=== PATIENT | female | born 1970 | race Caucasian/White ===

== ENCOUNTER → 2022-02-23 13:09 | Outpatient (BNVA) | payer MEDICARE, OTHER, SELFPAY | PROVIDERS: Visit Provider Podiatrist Foot & Ankle Surgery | DX: M72.2 Plantar fascial fibromatosis (principal); M21.611 Bunion of right foot; M21.612 Bunion of left foot; M20.41 Other hammer toe(s) (acquired), right foot; M20.42 Other hammer toe(s) (acquired), left foot; M21.621 Bunionette of right foot; M21.622 Bunionette of left foot | CPT/HCPCS: 73630; 99203; 99204 ==

== ENCOUNTER → 2022-04-06 14:10 | Outpatient (BNVA) | payer MEDICARE, OTHER, SELFPAY | PROVIDERS: Visit Provider Podiatrist Foot & Ankle Surgery | DX: M72.2 Plantar fascial fibromatosis (principal); M21.611 Bunion of right foot; M21.612 Bunion of left foot; M79.671 Pain in right foot; M79.672 Pain in left foot; M20.41 Other hammer toe(s) (acquired), right foot; M20.42 Other hammer toe(s) (acquired), left foot; M21.621 Bunionette of right foot; M21.622 Bunionette of left foot | CPT/HCPCS: 99213; 99214 ==

== ENCOUNTER 2022-04-12 15:35 | Outpatient (CLI) | payer MEDICARE, OTHER, SELFPAY | END 2022-04-12 15:36 | disposition home or self-care (01) | LOC: SPT 15:35 | PROVIDERS: Visit Provider Podiatrist Foot & Ankle Surgery | DX: Z46.89 Encounter for fitting and adjustment of other specified devices (principal); M72.2 Plantar fascial fibromatosis | CPT/HCPCS: 97760; L3030 ==

== ENCOUNTER → 2022-05-25 13:36 | Outpatient (BNVA) | payer MEDICARE, OTHER, SELFPAY | PROVIDERS: Visit Provider Podiatrist Foot & Ankle Surgery | DX: M72.2 Plantar fascial fibromatosis (principal); M21.611 Bunion of right foot; M21.612 Bunion of left foot; M20.41 Other hammer toe(s) (acquired), right foot; M20.42 Other hammer toe(s) (acquired), left foot; M21.621 Bunionette of right foot; M21.622 Bunionette of left foot | CPT/HCPCS: 99213 ==

== ENCOUNTER → 2022-07-06 12:03 | Outpatient (BNVA) | payer MEDICARE, OTHER, SELFPAY | PROVIDERS: PCP Nurse Practitioner Family; Visit Provider Nurse Practitioner Family | DX: N81.10 Cystocele, unspecified (principal); N39.3 Stress incontinence (female) (male); I10 Essential (primary) hypertension; M19.90 Unspecified osteoarthritis, unspecified site; M79.7 Fibromyalgia; N30.20 Other chronic cystitis without hematuria; Z79.1 Long term (current) use of non-steroidal anti-inflammatories (NSAID); E66.9 Obesity, unspecified | CPT/HCPCS: 80053; 80061 ==

== ENCOUNTER 2022-07-07 14:52 | Outpatient (CLI) | payer MEDICARE, OTHER, SELFPAY ==
--- NOTE | 2022-07-07 15:03 | MM_ITS ---
WS: [id number] BILATERAL 3D TOMOSYNTHESIS DIGITAL SCREENING MAMMOGRAPHY WITH CAD CLINICAL INFORMATION: screening HISTORY: Screening mammogram. No current complaints. COMPARISON: October 12, 2021 TECHNIQUE: Bilateral CC and MLO views. FINDINGS: Scattered fibroglandular densities bilaterally. 6 mm ovoid density 12:00 LEFT breast. Recommend furth er evaluation with ultrasound. This appears new or progressed compared to previous. RIGHT breast is unchanged and unremarkable. MM/[place] [id number] IMPRESSION: BI-RADS: 0-Incomplete: Need additional imaging evaluation FOLLOW UP: Need Additional Imaging Recommend LEFT breast ultrasound in further evaluation at the 12:00 position.
== END 2022-07-07 14:53 | disposition home or self-care (01) ==
LOC: RAD 14:55
PROVIDERS: PCP Nurse Practitioner Family; Visit Provider Nurse Practitioner Family
DX: Z12.31 Encounter for screening mammogram for malignant neoplasm of breast (principal)
CPT/HCPCS: 77063; 77067

== ENCOUNTER 2022-08-11 12:48 | Outpatient (CLI) | payer MEDICARE, OTHER, SELFPAY ==
--- NOTE | 2022-08-11 13:00 | US_ITS ---
WS: [id number] ULTRASOUND BREAST LEFT TECHNIQUE: Ultrasound left breast focused area of concern. CLINICAL INFORMATION: abnormal left breast mammo COMPARISON: July 07, 2022 FINDINGS: Ultrasound LEFT breast at the 12 to 1:00 position and LEFT axilla. There is a hypoechoic solid lesion at the 1:00 position taller than wide. This measures approximately 6.3 x 5.0 x 6.2 mm. This is suspi cious and recommend further evaluation with ultrasound-guided biopsy. No abnormal lymph nodes in the LEFT axilla. US/US breast LT limited* [id number] IMPRESSION: BI-RADS 4 Suspicious FOLLOW UP: Ultrasound-guided biopsy recommended RECOMMEND ULTRASOUND GUIDED BIOPSY OF THE SOLID LESION LEFT BREAST AT 1:00 POSI TION.
== END 2022-08-11 12:49 | disposition home or self-care (01) ==
LOC: RAD 12:48
PROVIDERS: PCP Nurse Practitioner Family; Visit Provider Nurse Practitioner Family
DX: R92.8 Other abnormal and inconclusive findings on diagnostic imaging of breast (principal)
CPT/HCPCS: 76642

== ENCOUNTER 2022-08-18 14:57 | Outpatient (CLI) | payer MEDICARE, OTHER, SELFPAY ==
--- NOTE | 2022-08-18 15:32 | XR_ITS ---
WS: [id number] DEXA (DUAL ENERGY X-RAY ABSORPTIOMETRY) Bone mineral density was performed using a [employer] machine. HISTORY: Asymptomatic MENOPAUSAL STATE COMPARISON: None available. Lumbar spine BMD (L1-L4): 1.138 g/cm2 T score: -0.4 Z score: -0.8 Total hip BMD: Left: 0.811 g/cm2. T score: -1.6 Z score: -1.8 Right: 0.845 g/cm2. T score: -1.3 Z score: -1.5 10 year probability of a major osteoporotic fracture is 13.9%. XR/XR DEXA axial skeleton* [id number] IMPRESSION: OSTEOPENIA based upon the WHO classification for females.
== END 2022-08-18 14:58 | disposition home or self-care (01) ==
LOC: RAD 14:58
PROVIDERS: PCP Nurse Practitioner Family; Visit Provider Nurse Practitioner Family
DX: Z78.0 Asymptomatic menopausal state (principal); M85.80 Other specified disorders of bone density and structure, unspecified site
CPT/HCPCS: 77080

== ENCOUNTER 2022-09-14 08:49 | Outpatient (CLI) | payer MEDICARE, OTHER, SELFPAY ==
--- NOTE | 2022-09-14 08:54 | US_ITS ---
WS: [email or web address] ULTRASOUND-GUIDED LEFT BREAST BIOPSY CLINICAL INFORMATION: abnormal us of left breast FINDINGS: The procedure including risks, benefits, and complications were discussed with the patient who agreed to proceed. Using sterile technique patient was prepped and draped in the usual sterile fashion. Aft er 1% lidocaine utilizing real-time ultrasound guidance 5 14-gauge cores were obtained of the LEFT br east lesion at the 1 o'clock position. Subsequently a titanium clip was placed in the biopsy cavity. No immediate complications. Pathology demonstrates Final Diagnosis A. Breast, left, 1 o'clock, 1 cm from nipple , ultrasound-guided biopsy: - Benign breast tissue with stromal sclerosis. - No malignancy identified. US/[place] [id number] IMPRESSION: 1. Uncomplicated ultrasound-guided LEFT breast 1:00 biopsy. 2. The pathology demonstrates benign breast tissue with stromal sclerosis. No malignancy identified. 3. Recommend return to annual screening mammography. BI-RADS: 2-Benign FOLLOW UP: 1 Year Follow-up
== END 2022-09-14 08:50 | disposition home or self-care (01) ==
LOC: RAD 08:50
PROVIDERS: PCP Family Medicine; Visit Provider Nurse Practitioner Family
DX: N63.21 Unspecified lump in the left breast, upper outer quadrant (principal)
CPT/HCPCS: 19083; 88305

== ENCOUNTER → 2023-07-17 13:50 | Outpatient (BNVA) | payer MEDICARE, OTHER, SELFPAY | PROVIDERS: PCP Family Medicine; Visit Provider Otolaryngology | DX: H60.543 Acute eczematoid otitis externa, bilateral (principal) | CPT/HCPCS: 99203 ==

== ENCOUNTER 2023-09-12 12:40 | Outpatient (CLI) | payer MEDICARE, OTHER, SELFPAY ==
--- NOTE | 2023-09-12 13:14 | MM_ITS ---
WS: [email or web address] Bilateral screening 3D tomosynthesis digital mammogram, 09/12/2023 Clinical Data: SCREENING Comparison: 06/06/2022, 10/12/2021, 06/01/2020, 05/03/2018, 03/11/2015, fourth 2011, 08/16/2011. Findings: The breast parenchymal pattern shows fibroglandular tissue. No spiculated masses or clustered calcifi cations are seen. There are no secondary signs of carcinoma. Impression: 1. Negative bilateral mammogram unchanged. 2. Recommend annual screening mammograms. MM/[place] [id number] BIRADS: 1-Negative FOLLOW UP: 1 Year Follow-up The CAD production checker was used.
== END 2023-09-12 12:41 | disposition home or self-care (01) ==
LOC: RAD 12:40
PROVIDERS: PCP Family Medicine; Visit Provider Family Medicine
DX: Z12.31 Encounter for screening mammogram for malignant neoplasm of breast (principal)
CPT/HCPCS: 77063; 77067

== ENCOUNTER 2023-10-16 16:59 | Outpatient (CLI) | payer MEDICARE, OTHER, SELFPAY ==
--- NOTE | 2023-10-16 17:05 | XR_ITS ---
WS: [email or web address] Exam: XR wrist RT min 3V* [id number] Date/Time of Exam: 10/16/2023 5:05 PM Reason For Exam: WRIST PAIN There are no fractures, soft tissue swelling, or unusual calcifications. The wrist shows normal bony alignment. There is no irregularity of the bony architecture. IMPRESSION: Negative RIGHT wrist.
== END 2023-10-16 17:00 | disposition home or self-care (01) ==
LOC: RAD 17:03
PROVIDERS: PCP Family Medicine; Visit Provider Nurse Practitioner Family
DX: M25.531 Pain in right wrist (principal)
CPT/HCPCS: 73110

== ENCOUNTER 2024-09-04 11:22 | Emergency (ER) | payer MEDICARE, OTHER, SELFPAY ==
[2024-09-04 11:44] VITALS: BP 123/75; PULSE 84; RESP 16; TEMP 36.7; O2SAT 95; BMI 25.0
--- NOTE | 2024-09-04 14:23 | W.ED.URI ---
HPI - URI/Sore Throat General: Chief Complaint: Dental/Oral Stated Complaint: swollen uvula Time Seen by Provider: 09/04/24 13:53 History of Present Illness: 54-year-old female comes in today with complaints of swelling of the uvula. Patient had a dental procedure done yesterday and believes her uvula was injured during the procedure. Patient reports last night she started having increased swelling and felt that the will be a lot was being swallowed. Patient also noticed a little white spot at the tip of it. Patient is managing secretions well. Patient appears nontoxic. Patient appears in mild pain. Related Data Previous Rx's Medication Instructions Recorded SOLE SUPPORTS #1 ea 02/23/22 ibuprofen 800 mg tablet 800 mg PO Q8H PRN pain #90 tabs 10/16/23 amlodipine 10 mg tablet 10 mg PO DAILY #90 tabs 04/19/24 estradiol 10 mcg vaginal tablet 10 mcg vaginal .twice weekly #30 04/19/24 (Yuvafem) tabs Allergies Allergy/AdvReac Type Severity Reaction Status Date / Time lisinopril Allergy ALGY-Swell Verified 09/03/24 15:44 Lip/Tongue/Throat morphine Allergy UNKNOWN Verified 04/19/24 11:28 Review of Systems General: Reports: 10 or more systems reviewed and unremarkable except in HPI and below ENMT: Reports: uvular edema PFSH ED PFSH: Medical History Acute respiratory disease due to COVID-19 virus Personal history of COVID-19 (~12/2020) Hx of cervical cancer History of COVID-19 Osteopenia History of pneumonia Arthritis Chronic cystitis Hypertension Surgical History History of ear surgery Hx of neck surgery History of total hysterectomy History of cholecystectomy History of appendectomy Family History Father CAD (coronary artery disease) Hypertension Family/Other CAD (coronary artery disease) Runs in paternal side Sister Cancer ovarian Hypertension Grandmother Cancer Maternal--x2 breast Diabetes Brother Hypertension Denies family history of Clotting disorder Dementia Hyperlipidemia Chronic kidney disease (CKD) Anesthesia complication Bleeding disorder Lung disease Stroke Social History Smoking and tobacco/nicotine status: never used tobacco/nicotine Second hand smoke exposure: No Alcohol intake: never Substance/Drug Use: never Adopted: No Caregiver/support person: No Lives independently: Yes Household members: spouse Marital status: Current occupational status: disabled Female Reproductive History: Para: 3 Spontaneous abortions: Yes Physical Exam Const: COMMON NORMALS: alert HENMT: COMMON NORMALS: normocephalic HEAD & SCALP: normocephalic MOUTH: Normal oral and palatal mucosa present THROAT: posterior oropharynx normal and uvular edema Neck/C-Spine: COMMON NORMALS: full ROM Chest: COMMONS NORMALS: normal inspection of the chest Resp: COMMON NORMALS: normal respiratory effort Cardio: COMMON NORMALS: regular rate RATE: regular rate GI: COMMON NORMALS: Soft to palpation and non-tender PALPATION: Yes Soft to palpation Back/Pelvis: COMMON NORMALS: thoracic and lumbar spine normal to inspection Extremity: COMMON NORMALS: full ROM Neuro: SENSORIUM/ORIENTATION: Yes alert Skin: COMMON NORMALS: turgor normal GENERAL SKIN EXAM: turgor normal Course Vital Signs: Vital signs: Vital Signs Temperature 98.1 F 09/04/24 11:44 Pulse Rate 84 09/04/24 11:44 Respiratory Rate 16 09/04/24 11:44 Blood Pressure 123/75 09/04/24 11:44 Pulse Oximetry 95 09/04/24 11:44 Oxygen Delivery Me thod Room Air 09/04/24 11:44 MDM - URI/Sore Throat Medical Decision Making 54-year-old female comes in today for complaints of uvula swelling. Patient dental procedure done yesterday and reports that the uvula was caught by the suction apparatus a couple of times which caused irritation. Since then patient has had increased swelling of the uvula. Patient also reports some soreness to the uvula. Differential diagnosis includes but not limited to uvulitis, retropharyngeal abscess, pharyngitis, angioedema. 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 There is a noticeable irritation to the uvula. Suspect uvulitis secondary to dental procedure. Will go ahead and cover with antibiotic and steroid. Patient reported understanding. Patient was given 10 mg of dexamethasone in the ER. And will be covered with antibiotic ceftriaxone x 1 followed by Augmentin. No radiology studies performed this visit Discharge Plan Discharge Condition: Stable Prescriptions: No Action (DME) SOLE SUPPORTS See Rx Instructions .Route .MEDSUPPLY Qty: 1 0RF Rx Instructions: As directed ibuprofen 800 mg tablet 800 mg PO Q8H PRN (Reason: pain) Qty: 90 0RF amlodipine 10 mg tablet 10 mg PO DAILY Qty: 90 2RF estradiol [Yuvafem] 10 mcg tablet 10 mcg vaginal .twice weekly Qty: 30 3RF Referrals: Ez Morales MD [Primary Care Provider] - Coding Level of Care Code ED [employer] for Chg Laura
[2024-09-04] MEDS: dexamethasone 10 mg/mL INJ IM (14:37)
[2024-09-04] MEDS: cefTRIAXone 1,000 MG in water for injection-sterile 2.1 ML 2.1 MG IM (14:38)
[2024-09-04 14:44] VITALS: BP 114/64; PULSE 76; O2SAT 98
== END 2024-09-04 14:45 | disposition home or self-care (01) ==
PROVIDERS: Emergency Provider Nurse Practitioner Family; PCP Family Medicine
DX: K12.2 Cellulitis and abscess of mouth (principal); I10 Essential (primary) hypertension; Z85.41 Personal history of malignant neoplasm of cervix uteri
CPT/HCPCS: 96372; 99284; J0696; J1100

== ENCOUNTER 2024-09-13 12:24 | Outpatient (CLI) | payer MEDICARE, OTHER, SELFPAY ==
--- NOTE | 2024-09-13 12:30 | MM_ITS ---
WS: [email or web address] BILATERAL 3D TOMOSYNTHESIS DIGITAL SCREENING MAMMOGRAPHY WITH CAD CLINICAL INFORMATION: screening HISTORY: Screening mammogram. No current complaints. COMPARISON: 2022 TECHNIQUE: Bilateral CC and MLO views. FINDINGS: Scattered fibroglandular densities bilaterally. No suspicious focal mass, asymmetry, calcifications, or architectural distortion. No evidence of malignancy. LEFT breast biopsy clip MM/MM scr BI tomosynthesis [id number] IMPRESSION: DENSITY: There are scattered areas of fibroglandular density. BI-RADS: 2 - Benign. FOLLOW UP: 1 Year Follow-up Recommend return to annual screening mammography.
== END 2024-09-13 12:25 | disposition home or self-care (01) ==
LOC: RAD 12:26
PROVIDERS: PCP Family Medicine; Visit Provider Family Medicine
DX: Z12.31 Encounter for screening mammogram for malignant neoplasm of breast (principal); R92.323 Mammographic fibroglandular density, bilateral breasts
CPT/HCPCS: 77063; 77067

== ENCOUNTER 2024-10-25 13:03 | Outpatient (CLI) | payer MEDICARE, OTHER, SELFPAY ==
--- NOTE | 2024-10-25 13:13 | XRR_ITS ---
PROCEDURE INFORMATION: Exam: XR Cervical Spine Exam date and time: 10/25/2024 1:21 PM Age: 54 years old Clinical indication: Neck pain; Prior surgery; Surgery date: 6+ months; Surgery type: Hardware 2018; Patient HX: Rested heavy object on head xfew months, twitching and pain in neck shoulder and arms, worse in left arm and left hand jerks; Additional info: Chronic neck pain TECHNIQUE: Imaging protocol: Radiologic exam of the cervical spine. Views: 2 or 3 views. COMPARISON: No relevant prior studies available. FINDINGS: Bones/joints: Prior ACDF from C5 through C7. Straightening of the cervical spine. Minimal degenerative changes with endplate osteophytes seen at C4-C5. Mild degenerative changes of the facet joints. Hardware is intact. Soft tissues: No significant soft tissue pathology. XR/XR cervical spine 3V* [id number] IMPRESSION: Intact ACDF. Straightening of the cervical spine.
== END 2024-10-25 13:04 | disposition home or self-care (01) ==
LOC: RAD 13:06
PROVIDERS: PCP Family Medicine; Visit Provider Family Medicine
DX: M43.22 Fusion of spine, cervical region (principal)
CPT/HCPCS: 72040

== ENCOUNTER 2024-11-06 06:30 | Outpatient (RCR) | payer MEDICARE, OTHER, SELFPAY | END 2024-12-06 23:59 | disposition home or self-care (01) | LOC: TPT 06:30 | PROVIDERS: Visit Provider Family Medicine | DX: M48.02 Spinal stenosis, cervical region (principal) | CPT/HCPCS: 97110; 97162 ==

== ENCOUNTER 2024-12-07 06:00 | Outpatient (RCR) | payer MEDICARE, OTHER, SELFPAY | END 2025-01-03 23:59 | disposition home or self-care (01) | LOC: TPT 06:00 | PROVIDERS: Visit Provider Family Medicine | DX: M48.02 Spinal stenosis, cervical region (principal) | CPT/HCPCS: 97110 ==

== ENCOUNTER 2025-01-04 06:00 | Outpatient (RCR) | payer MEDICARE, OTHER, SELFPAY | END 2025-02-03 23:59 | disposition home or self-care (01) | LOC: TPT 06:00 | PROVIDERS: Visit Provider Family Medicine | DX: M48.02 Spinal stenosis, cervical region (principal) | CPT/HCPCS: 97110 ==

== ENCOUNTER 2025-02-04 06:00 | Outpatient (RCR) | payer MEDICARE, OTHER, SELFPAY | END 2025-03-05 23:59 | disposition home or self-care (01) | LOC: TPT 06:00 | PROVIDERS: Visit Provider Family Medicine | DX: M48.02 Spinal stenosis, cervical region (principal) | CPT/HCPCS: 97110; 97140 ==

== ENCOUNTER 2025-03-06 05:00 | Outpatient (RCR) | payer MEDICARE, OTHER, SELFPAY | END 2025-04-05 23:55 | disposition home or self-care (01) | LOC: TPT 05:00 | PROVIDERS: Visit Provider Family Medicine | DX: M48.02 Spinal stenosis, cervical region (principal) | CPT/HCPCS: 97110 ==

== ENCOUNTER 2025-04-06 05:00 | Outpatient (RCR) | payer MEDICARE, OTHER, SELFPAY | END 2025-05-05 23:59 | disposition home or self-care (01) | LOC: TPT 05:00 | PROVIDERS: Visit Provider Family Medicine | DX: M48.02 Spinal stenosis, cervical region (principal) | CPT/HCPCS: 97110; 97164 ==

== ENCOUNTER 2025-05-06 05:00 | Outpatient (RCR) | payer MEDICARE, OTHER, SELFPAY | END 2025-06-05 23:59 | disposition home or self-care (01) | LOC: TPT 05:00 | PROVIDERS: Visit Provider Family Medicine | DX: M48.02 Spinal stenosis, cervical region (principal) | CPT/HCPCS: 97110 ==

== ENCOUNTER → 2025-05-26 09:57 | Outpatient (BNVA) | payer MEDICARE, OTHER, SELFPAY | PROVIDERS: PCP Family Medicine; Visit Provider Family Medicine | DX: R94.6 Abnormal results of thyroid function studies (principal) | CPT/HCPCS: 84439; 84443 ==

== ENCOUNTER 2025-06-06 05:00 | Outpatient (RCR) | payer MEDICARE, OTHER, SELFPAY | END 2025-07-06 23:59 | disposition home or self-care (01) | LOC: TPT 05:00 | PROVIDERS: PCP Family Medicine; Visit Provider Family Medicine | DX: M48.02 Spinal stenosis, cervical region (principal) | CPT/HCPCS: 97110 ==

== ENCOUNTER → 2025-09-09 10:19 | Outpatient (BNVA) | payer MEDICARE, OTHER, SELFPAY | PROVIDERS: PCP Family Medicine; Visit Provider Nurse Practitioner Family | DX: R39.9 Unspecified symptoms and signs involving the genitourinary system (principal) | CPT/HCPCS: 81003; 87086 ==

== ENCOUNTER 2025-09-17 13:12 | Outpatient (CLI) | payer MEDICARE, OTHER, SELFPAY ==
--- NOTE | 2025-09-17 13:30 | XR_ITS ---
WS: [email or web address] DEXA (DUAL ENERGY X-RAY ABSORPTIOMETRY) Bone mineral density was performed using a [employer] machine. HISTORY: osteopenia COMPARISON: 08/18/2022 Lumbar spine BMD (L1-L4): 1.069 g/cm2 T score: -0.9 Z score: -1.0 Total hip BMD: Left: 0.809 g/cm2. T score: -1.6 Z score: -1.6 Right: 0.791 g/cm2. T score: -1.7 Z score: -1.7 10 year probability of a major osteoporotic fracture is 9.7%. Compared to the prior study from 08/18/2022. Lumbar spine bone mineral density has decreased by 6.1%. Bilateral hips bone mineral density has decreased by 3.4%. XR/XR DEXA axial skeleton* [id number] IMPRESSION: OSTEOPENIA based upon the WHO classification for females. Significant decrease in bone mineral density within both the lumbar spine and h ips since the prior study.
--- NOTE | 2025-09-17 14:00 | MM_ITS ---
WS: [email or web address] BILATERAL 3D TOMOSYNTHESIS DIGITAL SCREENING MAMMOGRAPHY WITH CAD CLINICAL INFORMATION: screening HISTORY: Screening mammogram. No current complaints. COMPARISON: 2023 TECHNIQUE: Bilateral CC and MLO views. FINDINGS: Scattered fibroglandular densities bilaterally. No suspicious focal mass, asymmetry, calcifications, or architectural distortion. No evidence of malignancy. Biopsy clip upper outer LEFT breast MM/MM scr BI tomosynthesis [id number] IMPRESSION: DENSITY: There are scattered areas of fibroglandular density. BI-RADS: 2 - Benign. FOLLOW UP: 1 Year Follow-up Recommend return to annual screening mammography.
== END 2025-09-17 13:13 | disposition home or self-care (01) ==
LOC: RAD 13:13
PROVIDERS: PCP Family Medicine; Visit Provider Family Medicine
DX: Z12.31 Encounter for screening mammogram for malignant neoplasm of breast (principal); Z13.820 Encounter for screening for osteoporosis; M81.0 Age-related osteoporosis without current pathological fracture; R92.323 Mammographic fibroglandular density, bilateral breasts; Z96.89 Presence of other specified functional implants; M85.88 Other specified disorders of bone density and structure, other site
CPT/HCPCS: 77063; 77067; 77080